=== PATIENT | female | born 1955 | race Caucasian/White ===

== ENCOUNTER 2022-12-31 09:01 | Outpatient (CLI) | payer MEDICARE ==
[2022-12-31] MEDS ORDERED: Iopamidol 300 61% 100 ML VIAL FS ONE (10:13)
== END 2022-12-31 09:02 | disposition home or self-care (01) ==
LOC: CSHCT 09:01
PROVIDERS: ATTEND Student in an Organized Health Care Education/Training Program
DX: R22.1 Localized swelling, mass and lump, neck (principal); R22.2 Localized swelling, mass and lump, trunk; K76.9 Liver disease, unspecified; N28.1 Cyst of kidney, acquired
CPT/HCPCS: 71260; 74177; 82565; Q9967

== ENCOUNTER 2023-08-10 08:47 | Outpatient (CLI) | payer MEDICARE, OTHER ==
[2023-08-10] MEDS ORDERED: Magnevist 469MG/ML 20 ML VIAL ONE (10:02)
== END 2023-08-10 08:48 | disposition home or self-care (01) ==
LOC: CSHMRI 08:47
PROVIDERS: ATTEND Internal Medicine Gastroenterology
DX: K76.9 Liver disease, unspecified (principal); K76.89 Other specified diseases of liver
CPT/HCPCS: 74183